=== PATIENT | female | born 1980 | race Two or more races ===

== ENCOUNTER 2023-09-23 19:33 | Inpatient (IN) | payer OTHER ==
[~2023-09-23] VITALS: Ht 162.6 cm; Wt 73.8 kg
[2023-09-23 20:09] LABS: Urine Bacteria None Seen /hpf (None Seen)
[2023-09-23 20:19] LABS: Basophils # (auto) 0.1 10 ^3/uL (0-0.2); Basophils % (auto) 1.2 % (0.0-2.0); Eosinophils # (auto) 0 10 ^3/uL (0-0.8); Lymphocytes # (auto) 1.5 10 ^3/uL (0.4-5.4); Monocytes # (auto) 0.3 10 ^3/uL (0-1.3); Neutrophils # (auto) 3.6 10 ^3/uL (1.6-8.6); White Blood Cell 5.5 10^3/uL (4.4-10.8)
[2023-09-23 20:21] LABS: Eosinophils % (auto) 0.3 % (0.0-7.0); Hematocrit 23.8 % (36.0-46.0); Lymphocytes % (auto) 27.7 % (10.0-50.0); Mean Corpuscular Hemoglobin 14.7 pg (28.0-32.0); Mean Corpuscular Hgb Conc. 27.8 g/dL (32.0-36.0); Mean Corpuscular Volume 52.9 fL (80.0-100.0); Monocytes % (auto) 6.2 % (0.0-12.0); Neutrophils % (auto) 64.6 % (37.0-80.0); Nucleated Red Blood Cells % 0.1 %
[2023-09-23 20:31] LABS: Red Cell Distribution Width 20.9 % (11.8-14.3)
[2023-09-23 20:32] LABS: Hemoglobin 6.6 g/dL (12.2-16.2)
[2023-09-23 20:32] LABS: Urine Blood TRACE /uL (Negative); Urine Clarity Clear (Clear); Urine Color Light-Yellow (Yellow); Urine Mucus FEW (None Seen); Urine Protein, UAD Negative (Negative); Urine Specific Gravity 1.022 (1.001-1.035); Urine Urobilinogen Normal (Negative); Urine WBC 2 /hpf (0 - 5)
[2023-09-23 20:38] LABS: Alanine Aminotransferase 14 U/L (7-40); Albumin 4.5 g/dL (3.2-4.8); Alkaline Phosphatase 49 U/L (46-116); Anion Gap 5 (5-15); Aspartate Aminotransferase 12 U/L (13-40); BUN/Creatinine Ratio 21.3 (10.0-20.0); Bilirubin, Total 0.4 mg/dL (0.2-1.0); Blood Urea Nitrogen 13 mg/dL (9-23); Calcium 9.4 mg/dL (8.7-10.4); Carbon Dioxide 26 mmol/L (20-30); Chloride 106 mmol/L (98-107); Glucose 102 mg/dL (74-106); Lipase 29 U/L (12-53); Potassium 3.9 mmol/L (3.5-5.1); Sodium 137 mmol/L (136-145); Total Protein 7.4 g/dL (5.7-8.2)
[2023-09-23 20:52] LABS: % Iron Saturation 2.5 % (15-50)
[2023-09-23 21:18] LABS: Ferritin 1.7 ng/mL (10-291); Folate (Folic Acid) 22.12 ng/mL (>5.38)
[2023-09-23 21:58] LABS: Platelet Estimate Increased
[2023-09-23 21:59] LABS: Anisocytosis Slight; Hypochromia Marked; Ovalocytes FEW; Stomatocytes Few
[2023-09-23 22:42] VITALS: PULSE 77; RESP 16; O2SAT 99
[2023-09-24] VITALS (16 sets, daily range): BP systolic 96–120; BP diastolic 50–69; PULSE 56–85; RESP 12–20; TEMP 97.5–98.5; O2SAT 99–100
[2023-09-24] MEDS ORDERED: ONDANSETRON HCL 4 MG/2 ML VIAL IV PRN
[2023-09-24] MEDS ORDERED: MORPHINE SULFATE INJ 2 MG/ml SYRG IV PRN
[2023-09-24] MEDS ORDERED: NITROGLYCERIN 0.4 MG SL TAB SL PRN
[2023-09-24] MEDS ORDERED: DOCUSATE SOD 100 MG CAP PO PRN
[2023-09-24] MEDS ORDERED: ACETAMINOPHEN 325 MG TAB PO PRN
[2023-09-24] MEDS ORDERED: HYDROcodone-ACET 5/325MG TAB PO PRN
[2023-09-24] MEDS: SODIUM CHLORIDE 0.9% 1,000 ML IV SCH ×2 (01:43→12:45)
[2023-09-24 12:11] LABS: Albumin 3.9 g/dL (3.2-4.8); Alkaline Phosphatase 42 U/L (46-116); Anion Gap 8 (5-15); Aspartate Aminotransferase 17 U/L (13-40); BUN/Creatinine Ratio 11.5 (10.0-20.0); Bilirubin, Total 0.7 mg/dL (0.2-1.0); Blood Urea Nitrogen 6 mg/dL (9-23); Calcium 8.8 mg/dL (8.5-10.1); Carbon Dioxide 21 mmol/L (20-30); Chloride 110 mmol/L (98-107); Glucose 79 mg/dL (74-106); Potassium 4.1 mmol/L (3.5-5.1); Sodium 139 mmol/L (136-145); Total Protein 6.4 g/dL (5.7-8.2)
[2023-09-24 12:12] LABS: Alanine Aminotransferase < 9 U/L (7-40)
[2023-09-24 12:21] LABS: INR 1.09 (0.9-1.15); Prothrombin Time 11.4 sec (9.3-11.8)
[2023-09-24] MEDS: METOCLOPRAMIDE HCL 5MG/ml INJ 2ml VIAL IV ONE (12:21)
[2023-09-24 13:21] LABS: Basophils # (auto) 0.1 10 ^3/uL (0-0.2); Eosinophils # (auto) 0 10 ^3/uL (0-0.8); Eosinophils % (auto) 0.3 % (0.0-7.0); Hematocrit 29.9 % (36.0-46.0); Hemoglobin 8.6 g/dL (12.2-16.2); Lymphocytes # (auto) 1.5 10 ^3/uL (0.4-5.4); Lymphocytes % (auto) 30.3 % (10.0-50.0); Mean Corpuscular Hemoglobin 17.2 pg (28.0-32.0); Mean Corpuscular Hgb Conc. 28.8 g/dL (32.0-36.0); Mean Corpuscular Volume 59.6 fL (80.0-100.0); Monocytes # (auto) 0.7 10 ^3/uL (0-1.3); Monocytes % (auto) 13.5 % (0.0-12.0); Neutrophils # (auto) 2.6 10 ^3/uL (1.6-8.6); Neutrophils % (auto) 53.9 % (37.0-80.0); Nucleated Red Blood Cells % 0.4 %; Red Blood Cells 5.02 10^6/uL (4.0-5.20); White Blood Cell 4.8 10^3/uL (4.4-10.8)
[2023-09-24] MEDS: PANTOPRAZOLE 40 MG TAB PO ONE (13:22)
[2023-09-24 13:25] LABS: Red Cell Distribution Width 29.1 % (11.8-14.3)
[2023-09-24 13:51] LABS: Platelet Estimate Adequate
[2023-09-24 13:54] LABS: Anisocytosis Marked; Hypochromia Marked; Ovalocytes MODERATE; Target Cell FEW
[2023-09-24] MEDS: LIDOCAINE VISCOUS 2% 15ML UD ONE (15:38)
[2023-09-24] MEDS: diphenhdrAMINE HCL 50 MG/1 ML VL ONE (15:44)
[2023-09-24] MEDS: fentaNYL CITRATE 100 MCG/2 ML VL ONE (15:44)
[2023-09-24] MEDS: MIDAZOLAM HCL 5 MG/ML-1ML VIAL ONE (15:44)
[2023-09-24] MEDS: FERROUS SULFATE 325mg EC TAB PO SCH (17:19)
[2023-09-24] MEDS ORDERED: FERROUS SULFATE 325mg EC TAB PO SCH (18:00)
[2023-09-24 18:16] LABS: Hemoglobin 8.1 g/dL (12.2-16.2)
[2023-09-25 00:43] LABS: Hematocrit 27.7 % (36.0-46.0)
[2023-09-25 01:00] VITALS: BP 104/58; PULSE 60; RESP 14; TEMP 97.7; O2SAT 99
[2023-09-25 05:00] VITALS: BP 108/60; PULSE 60; RESP 16; TEMP 97.5; O2SAT 100
[2023-09-25 06:43] LABS: Eosinophils # (auto) 0 10 ^3/uL (0-0.8); Eosinophils % (auto) 0.6 % (0.0-7.0); Hemoglobin 8.6 g/dL (12.2-16.2); Mean Corpuscular Hgb Conc. 28.8 g/dL (32.0-36.0); White Blood Cell 5.9 10^3/uL (4.4-10.8)
[2023-09-25 06:46] LABS: Basophils # (auto) 0 10 ^3/uL (0-0.2); Basophils % (auto) 0.5 % (0.0-2.0); Hematocrit 29.8 % (36.0-46.0); Lymphocytes # (auto) 2.7 10 ^3/uL (0.4-5.4); Lymphocytes % (auto) 45.8 % (10.0-50.0); Mean Corpuscular Hemoglobin 17.1 pg (28.0-32.0); Mean Corpuscular Volume 59.5 fL (80.0-100.0); Monocytes # (auto) 0.6 10 ^3/uL (0-1.3); Monocytes % (auto) 10.2 % (0.0-12.0); Neutrophils # (auto) 2.5 10 ^3/uL (1.6-8.6); Neutrophils % (auto) 42.9 % (37.0-80.0); Nucleated Red Blood Cells % 0.1 %; Red Blood Cells 5.01 10^6/uL (4.0-5.20)
[2023-09-25 06:52] LABS: Red Cell Distribution Width 28.8 % (11.8-14.3)
[2023-09-25 07:10] LABS: Albumin 3.9 g/dL (3.2-4.8); Alkaline Phosphatase 41 U/L (46-116); Anion Gap 8 (5-15); Aspartate Aminotransferase 12 U/L (13-40); BUN/Creatinine Ratio 16.4 (10.0-20.0); Bilirubin, Total 0.8 mg/dL (0.2-1.0); Blood Urea Nitrogen 10 mg/dL (9-23); Calcium 8.6 mg/dL (8.5-10.1); Carbon Dioxide 22 mmol/L (20-30); Chloride 110 mmol/L (98-107); Glucose 71 mg/dL (74-106); Potassium 3.9 mmol/L (3.5-5.1); Sodium 140 mmol/L (136-145)
[2023-09-25 07:11] LABS: Total Protein 6.3 g/dL (5.7-8.2)
[2023-09-25 07:13] LABS: Alanine Aminotransferase < 9 U/L (7-40)
[2023-09-25 08:15] VITALS: BP 122/71; PULSE 65; RESP 18; TEMP 98.3; O2SAT 98
[2023-09-25 08:21] LABS: Anisocytosis Moderate; Hypochromia Moderate; Platelet Estimate Adequate
[2023-09-25 08:23] LABS: Ovalocytes FEW; Tear Drop Cells FEW
[2023-09-25] MEDS: PANTOPRAZOLE 40 MG TAB PO SCH (08:42)
[2023-09-25] MEDS ORDERED: PANT40T PO (17:11)
[2023-09-25] MEDS ORDERED: FER325T PO (17:11)
[2023-09-25 17:32] VITALS: TEMP 36.8
== END 2023-09-25 18:18 | disposition home or self-care (01) | DRG 663 ==
LOC: ER 19:33 → TELE 09-24 00:08 → TELE-WESTW 09-24 02:22
PROVIDERS: ADMIT Nurse Practitioner Family; ATTEND Internal Medicine
PROC: 0DB68ZX Excision of Stomach, Via Natural or Artificial Opening Endoscopic, Diagnostic (ICD-10-PCS; 2023-09-24)
PROC: 0DB48ZX Excision of Esophagogastric Junction, Via Natural or Artificial Opening Endoscopic, Diagnostic (ICD-10-PCS; 2023-09-24)
PROC: 30233N1 Transfusion of Nonautologous Red Blood Cells into Peripheral Vein, Percutaneous Approach (ICD-10-PCS; 2023-09-24)
PROC: 0DB98ZX Excision of Duodenum, Via Natural or Artificial Opening Endoscopic, Diagnostic (ICD-10-PCS; principal; 2023-09-24 15:31)
DX: D62 Acute posthemorrhagic anemia (principal); K22.11 Ulcer of esophagus with bleeding; K29.01 Acute gastritis with bleeding; D72.829 Elevated white blood cell count, unspecified; N92.0 Excessive and frequent menstruation with regular cycle
CPT/HCPCS: 36415; 43239; 76856; 80053; 81001; 81025; 82728; 82746; 83540; 83550; 83615; 83690; 84484; 85014; 85018; 85025; 85045; 85610; 86850; 86900; 86901; 86920; 99291; G0378; J2250